=== PATIENT | male | born 1965 | race Caucasian/White ===

== ENCOUNTER → 2021-06-01 07:43 | Outpatient (BNVA) | payer OTHER, SELFPAY | PROVIDERS: PCP Hospitalist; Visit Provider Internal Medicine | DX: S46.212A Strain of muscle, fascia and tendon of other parts of biceps, left arm, initial encounter (principal); X50.0XXA Overexertion from strenuous movement or load, initial encounter | CPT/HCPCS: 99202 ==

== ENCOUNTER → 2021-06-07 10:01 | Outpatient (BNVA) | payer OTHER, SELFPAY | PROVIDERS: PCP Hospitalist; Visit Provider Physician Assistant Medical | DX: S46.212A Strain of muscle, fascia and tendon of other parts of biceps, left arm, initial encounter (principal); X58.XXXA Exposure to other specified factors, initial encounter | CPT/HCPCS: 99213 ==

== ENCOUNTER 2021-06-15 12:43 | Outpatient (REF) | payer OTHER, SELFPAY ==
--- NOTE | ~2021-06-15 | MR_ITS ---
EXAMINATION: MR SHOULDER WITHOUT CONTRAST, LEFT CLINICAL INFORMATION: Lifting injury on 05/30/2021. Dislocation with physical oversized bicep. Biceps bulge. Tendon rupture proximally. COMPARISON: None TECHNIQUE: Multisequence MR imaging of the left shoulder was obtained without contrast on a high-field strength scanner. FINDINGS: ROTATOR CUFF: Mild supraspinatus, infraspinatus, and subscapularis tendinosis without a measurable rotator cuff tendon tear. No muscle atrophy or fatty infiltration. BICEPS: The proximal long head biceps tendon is absent, consistent with a complete tear and tendon retraction distally beyond the imaged [id number]. CORACOACROMIAL ARCH: The undersurface of the acromion is curved with no subacromial spur. Moderate acromioclavicular osteoarthritis. LABRUM/CAPSULE: Attenuation and irregularity of the superior labrum in the region of the biceps anchor, consistent with irregular fraying/tearing. GLENOHUMERAL JOINT/MARROW: Mild inferior glenoid articular cartilage signal heterogeneity with tiny marginal osteophytes. Mild reactive marrow edema within the superior glenoid adjacent to the biceps insertion. MR/MR shoulder LT wo con IMPRESSION: 1. Complete tear of the proximal long head biceps tendon with retraction of the torn tendon fibers distally beyond the imaged [id number]. Irregular fraying through the superior labrum in the region of the biceps anchor as well as mild reactive marrow edema within the superior glenoid. 2. Mild supraspinatus, infraspinatus, and subscapularis tendinosis without a measurable rotator cuff tendon tear. 3. Moderate acromioclavicular and mild glenohumeral osteoarthritis.
== END 2021-06-15 12:44 | disposition home or self-care (01) ==
LOC: HO.MRI 12:43
PROVIDERS: Visit Provider Internal Medicine
DX: M25.512 Pain in left shoulder (principal)
CPT/HCPCS: 73221

== ENCOUNTER → 2021-06-22 13:14 | Outpatient (BNVA) | payer OTHER, SELFPAY | PROVIDERS: PCP Hospitalist; Visit Provider Internal Medicine | DX: S46.212A Strain of muscle, fascia and tendon of other parts of biceps, left arm, initial encounter (principal); X50.0XXA Overexertion from strenuous movement or load, initial encounter | CPT/HCPCS: 99213 ==

== ENCOUNTER 2021-06-30 07:07 | Outpatient (REF) | payer OTHER, SELFPAY ==
--- NOTE | ~2021-06-30 | XR_ITS ---
EXAMINATION: XR SHOULDER, LEFT CLINICAL INFORMATION: Pain COMPARISON: None TECHNIQUE: 3 views of the left shoulder. FINDINGS: Bone alignment is normal. No fracture or dislocation is seen. The glenohumeral joint is normal. There is arthritis at the acromioclavicular joint. Soft tissues are unremarkable. XR/XR shoulder LT min 2V IMPRESSION: Arthritis at the acromioclavicular joint.
== END 2021-06-30 07:08 | disposition home or self-care (01) ==
LOC: HO.HOSX 07:07
PROVIDERS: Visit Provider Physician Assistant
DX: S46.212D Strain of muscle, fascia and tendon of other parts of biceps, left arm, subsequent encounter (principal); X58.XXXD Exposure to other specified factors, subsequent encounter
CPT/HCPCS: 73030; 99202

== ENCOUNTER → 2021-07-31 13:39 | Outpatient (BNVA) | payer OTHER, SELFPAY | PROVIDERS: PCP Hospitalist; Visit Provider Physician Assistant | DX: S46.212D Strain of muscle, fascia and tendon of other parts of biceps, left arm, subsequent encounter (principal) | CPT/HCPCS: 99212 ==

== ENCOUNTER 2021-09-13 17:00 | Outpatient (RCR) | payer OTHER, SELFPAY ==
--- NOTE | 2021-08-23 16:23 | MHC.PT.EP ---
[facility] [place] Office [place] Office [place] Office [address] [phone] F: [phone] F: [phone] F: [phone] F: [phone] Physical Therapy Plan of Care Date of Evaluation: Date of Surgery: N/A Diagnosis: Strain of muscle, fascia and tendon of other parts of biceps, left arm Rupture of left proximal biceps tendon Assessment: Pt is a pleasant 56yo M who presents to PT with rupture of left proximal biceps tendon after lifting a heavy box that was stuck at work on 05/30/21. He presents to PT with current impairments in decreased shoulder ROM, decreased shoulder and elbow strength, soft tissue restrictions, and impaired posture. He has (+) pop eye sign. He is limited functionally by lifting, reaching, and overhead ADLs. He is an excellent candidate for skilled PT in order to address current impairments to facilitate return to PLOF. He will be seen 2x/week for 4 weeks and will be reassessed at that time. Frequency and Duration: The patient will be seen 2x/week for 4 weeks Short Term Goals: Pt will be I with HEP to promote self management of symptoms Pt will improve bicep strength by 1/2 grade Custodial Goals: Pt will demonstrate full ROM and strength throughout L UE to assist with daily functional tasks Pt will perform overhead ADLs with minimal to no compensation Pt will demonstrate ability to lift 5# object to overhead shelf with minimal to no pain to assist with daily functional tasks Treatment Plan: Modalities to reduce pain, spasms and effusion. Manual therapy to restore motion and function. Therapeutic exercise to improve strength and flexibility. Neuromuscular re-education for posture and balance. Therapeutic activities to return to functional activities of daily living. Electronically signed by: Sandra Hook, PT, DPT Please sign and return to therapist. Thank you for your referral.
--- NOTE | 2021-10-11 10:37 | MHC.PT.DC ---
[facility] [place] Office [place] Office [place] Office [address] Ruthie Henson 140 [facility] [phone] F: [phone] F: [phone] F: [phone] F: [phone] Physical Therapy Discharge Report Diagnosis: Strain of muscle, fascia and tendon of other parts of biceps, left arm Rupture of left proximal biceps tendon Date of Surgery: N/A Date of Evaluation: 08/23/21 Date of Discharge: 10/11/21 Treatments to Date: 3 Cancellations to Date: 5 No Shows to Date: 2 Discharge Status: Visit Non-compliance Discharge Summary: Pt was seen for PT from 08/23/21-09/13/21. Pt attended 3 PT sessions and his last attended appointment was 09/13/21. He has had 5 cancellations and 2 no-show appointments. Pt is being D/C from skilled PT per [facility] attendance policy and visit non-compliance. Pt current level of function unknown at this time. Electronically signed by: Sandra Hook, PT, DPT Please sign and return to therapist. Thank you for your referral.
== END 2021-10-11 10:37 | disposition home or self-care (01) ==
LOC: HO.PT 17:00
PROVIDERS: PCP Hospitalist; Visit Provider Physician Assistant
DX: S46.212A Strain of muscle, fascia and tendon of other parts of biceps, left arm, initial encounter (principal)
CPT/HCPCS: 97110; 97161

== ENCOUNTER → 2021-10-12 14:45 | Outpatient (BNVA) | payer OTHER, SELFPAY | PROVIDERS: PCP Hospitalist; Visit Provider Physician Assistant | DX: S46.212D Strain of muscle, fascia and tendon of other parts of biceps, left arm, subsequent encounter (principal) | CPT/HCPCS: 99212 ==

== ENCOUNTER → 2022-02-05 13:05 | Outpatient (BNVA) | payer OTHER, SELFPAY | PROVIDERS: PCP Hospitalist; Visit Provider Internal Medicine | DX: S39.011A Strain of muscle, fascia and tendon of abdomen, initial encounter (principal); X50.0XXA Overexertion from strenuous movement or load, initial encounter; R10.819 Abdominal tenderness, unspecified site | CPT/HCPCS: 99202 ==

== ENCOUNTER → 2022-02-12 13:09 | Outpatient (BNVA) | payer OTHER, SELFPAY | PROVIDERS: PCP Hospitalist; Visit Provider Internal Medicine | DX: K43.9 Ventral hernia without obstruction or gangrene (principal) | CPT/HCPCS: 99213 ==

== ENCOUNTER → 2022-02-27 13:06 | Outpatient (BNVA) | payer OTHER, SELFPAY | PROVIDERS: PCP Hospitalist; Visit Provider Internal Medicine | DX: K43.9 Ventral hernia without obstruction or gangrene (principal) | CPT/HCPCS: 99213 ==

== ENCOUNTER 2022-03-05 13:00 | Outpatient (REF) | payer OTHER, SELFPAY ==
[2022-03-05 14:18] LABS: Estimated Average Glucose 269 mg/dL
[2022-03-05 15:05] LABS: Anion Gap 14 (12-20); Blood Urea Nitrogen 22 mg/dL (9-16); Calcium 9.8 mg/dL (8.4-10.2); Carbon Dioxide 26 mmol/L (22-29); Chloride 99 mmol/L (96-108); Estimated Glomerular Filt Rate > 60; Glucose Random 641 mg/dL (60-115); Potassium 5.3 mmol/L (3.3-5.1); Sodium 134 mmol/L (135-145)
== END 2022-03-05 13:01 | disposition home or self-care (01) ==
LOC: HO.LAB 13:00
PROVIDERS: PCP Hospitalist; Referring Provider Internal Medicine; Visit Provider Surgery
DX: R10.9 Unspecified abdominal pain (principal); E11.9 Type 2 diabetes mellitus without complications
CPT/HCPCS: 36415; 80048; 83036; 99202

== ENCOUNTER → 2022-03-06 14:43 | Outpatient (BNVA) | payer OTHER, SELFPAY | PROVIDERS: PCP Hospitalist; Visit Provider Internal Medicine | DX: K43.9 Ventral hernia without obstruction or gangrene (principal) | CPT/HCPCS: 99213 ==

== ENCOUNTER 2022-03-21 16:20 | Outpatient (REF) | payer OTHER, SELFPAY ==
--- NOTE | ~2022-03-21 | CT_ITS ---
EXAMINATION: CT ABDOMEN AND PELVIS WITHOUT CONTRAST CLINICAL INFORMATION: Abdominal pain with question of hernia COMPARISON: None TECHNIQUE: Multidetector volumetric imaging was performed from the superior aspect of the liver through the pubic symphysis. Sagittal and coronal reformatted images were obtained on the technologist's workstation. This CT examination was performed using dose optimization techniques as appropriate, variously including the following: *Automated exposure control *Adjustment of mA and/or kV according to patient size (this includes techniques or standardized protocols for targeted exams where dose is matched to indication/reason for exam; i.e. extremities or head) *Use of iterative reconstruction technique DLP: 434 mGy-cm FINDINGS: LUNG BASES: The visualized lung bases are unremarkable. LIVER, GALLBLADDER, AND BILIARY TREE: The liver is normal in size, shape, and attenuation. No focal hepatic lesion or biliary ductal dilatation is present. The gallbladder is unremarkable with no evidence of radiopaque gallstones, gallbladder wall thickening, or obvious pericholecystic inflammatory changes. PANCREAS: Unremarkable. SPLEEN: Unremarkable. ADRENAL GLANDS: Unremarkable. KIDNEYS AND URETERS: The kidneys are normal in size, shape, and attenuation. No hydronephrosis, hydroureter, or calculi seen. No perinephric stranding. BLADDER AND PROSTATE: There is marked distention of the urinary bladder with diffuse thickening of the wall measuring about 7 mm. The bladder dimensions are 15.9 x 10.6 x 13 cm. There is a posterior bladder diverticulum on the right that measures 2.9 x 3.0 x 4.1 cm. The mouth of the diverticulum is 7 mm. The prostate is mildly enlarged but there is a prominent median lobe protruding into the bladder. The vas deferens is calcified. GASTROINTESTINAL TRACT: The small and large bowel are unremarkable aside from colonic diverticula without diverticulitis. The appendix is unremarkable. ABDOMINAL WALL: There are small bilateral direct inguinal hernias and small portion of the bladder protrudes into these regions. LYMPH NODES: No retroperitoneal lymphadenopathy. VASCULAR: Unremarkable. OSSEOUS STRUCTURES: Degenerative changes are present in the spine most marked at L4-L5. There is mild compression deformity of the superior endplate of T12 with a Schmorl's node. A bone island is present in the left iliac bone. No pathologic bony destruction seen to suggest malignancy. CT/CT abdomen pelvis wo IV con IMPRESSION: 1. Marked distention of the urinary bladder with thickening of the wall and a bladder diverticulum. Findings are suggestive of bladder outlet obstruction. A very prominent median lobe protrudes into the bladder 2. Other incidental findings as described above. Fleischner guidelines were followed.
== END 2022-03-21 16:21 | disposition home or self-care (01) ==
LOC: HO.CT 16:20
PROVIDERS: PCP Hospitalist; Visit Provider Surgery
DX: R10.9 Unspecified abdominal pain (principal); E11.9 Type 2 diabetes mellitus without complications
CPT/HCPCS: 74176

== ENCOUNTER → 2022-04-04 15:15 | Outpatient (BNVA) | payer OTHER, SELFPAY | PROVIDERS: PCP Hospitalist; Visit Provider Surgery | DX: R10.9 Unspecified abdominal pain (principal); E11.9 Type 2 diabetes mellitus without complications; S46.212A Strain of muscle, fascia and tendon of other parts of biceps, left arm, initial encounter | CPT/HCPCS: 99212 ==

== ENCOUNTER → 2022-04-10 14:12 | Outpatient (BNVA) | payer OTHER, SELFPAY | PROVIDERS: PCP Hospitalist; Visit Provider Internal Medicine | DX: R10.84 Generalized abdominal pain (principal) | CPT/HCPCS: 99213 ==